=== PATIENT | female | born 1965 | race Caucasian/White ===

== ENCOUNTER 2020-04-28 16:39 | Outpatient (REF) | payer MEDICAID, SELFPAY ==
--- NOTE | 2020-04-28 | MM_ITS ---
EXAMINATION: MM SCREENING DIGITAL BREAST TOMOSYNTHESIS, BILATERAL CLINICAL INFORMATION: Screening. Asymptomatic. Benign left stereotactic biopsy 11/15/2018 (breast tissue with columnar cell change and microcalcifications). The lifetime risk of breast cancer based on the Tyrer-Cuzick Model is 9%. COMPARISON: Mammography: 05/21/2019, 11/28/2018, 11/23/2018, 11/15/2018, 11/09/2017 TECHNIQUE: Digital breast tomosynthesis is performed in both the craniocaudal and mediolateral oblique views along with computer-aided detection (CAD). Synthesized 2D images are generated from the tomosynthesis. Additional exaggerated right CC view is provided. FINDINGS: The breasts are heterogeneously dense, which may obscure small masses (ACR BI-RADS breast composition Category c). There is no developing density or interval mass or architectural abnormality. Low right axillary tail node is again seen. There are scattered bilateral round calcifications. Biopsy clip marker posterior medial left breast again noted with no recurrent calcifications. No significant changes. MM/MM tomosynthesis screening BI IMPRESSION: No significant changes from prior study. ASSESSMENT: BI-RADS 2: Benign RECOMMENDATION: Routine annual mammography screening. This patient's information was entered into a reminder system with a target due date for their next mammogram.
== END 2020-04-28 16:40 | disposition home or self-care (01) ==
LOC: HO.MAMMO 16:39
PROVIDERS: PCP Internal Medicine; Visit Provider Internal Medicine
DX: Z12.31 Encounter for screening mammogram for malignant neoplasm of breast (principal)
CPT/HCPCS: 77063; 77067

== ENCOUNTER → 2020-05-05 15:06 | Outpatient (BNVA) | payer MEDICAID, SELFPAY | PROVIDERS: PCP Internal Medicine; Visit Provider Advanced Practice Midwife | DX: N95.1 Menopausal and female climacteric states (principal); N92.6 Irregular menstruation, unspecified | CPT/HCPCS: 99212 ==

== ENCOUNTER 2020-06-22 16:40 | Outpatient (REF) | payer MEDICAID, SELFPAY | END 2020-06-22 16:41 | disposition home or self-care (01) | LOC: HO.LAB 16:40 | PROVIDERS: Visit Provider Internal Medicine | DX: Z20.822 Contact with and (suspected) exposure to COVID-19 (principal) | CPT/HCPCS: 36415; C9803; U0003 ==

== ENCOUNTER → 2020-07-09 15:22 | Outpatient (BNVA) | payer MEDICAID, SELFPAY | PROVIDERS: PCP Internal Medicine; Visit Provider Surgery | DX: Z12.11 Encounter for screening for malignant neoplasm of colon (principal) | CPT/HCPCS: 99202 ==

== ENCOUNTER 2020-07-29 06:34 | Day surgery (SDC) | payer MEDICAID, SELFPAY ==
[2020-07-22 14:15] VITALS: BMI 24.1
--- NOTE | 2020-07-28 10:07 | HO.ANESPROP2 ---
Documented by User: Alisha Thomason 07/28/20 10:08 HPI - Anesthesia Eval Consult details Narrative: 55yo F for Colonoscopy PMFSH Active Problems Active Problems: All Active Problems (Updated 07/22/20 @ 14:13 by Iraida Silva) Perimenopausal (Acute) Irregular menses (Acute) Colon cancer screening (Acute) Past Medical History Medical History Colon cancer screening Low back pain Family History Family History Father Prostate cancer Mother Depression Maternal Aunt History of gastric cancer Paternal Grandmother Uterine cancer Surgical History Surgical History History of colonoscopy (07/06/15) History of left breast biopsy (11/28/18) Hx of tubal ligation Social History Social History Alcohol intake: never Smoking Status: Never smoker Use of substances other than those prescribed or required for medical reasons: No Have you been hit, kicked, punched, or otherwise hurt by someone within the past year? If so, by whom?: No Advance Directives: No Advance Directives Information Provided: No Advance Directives on File: No Gender identity: female Meds Allergies Allergy/AdvReac Type Severity Reaction Status Date / Time No Known Allergies Allergy Verified 07/22/20 14:13 Home Medications Medication Instructions Recorded Confirmed Last Taken Type acetaminophen 650 mg PO Q6H PRN 07/22/20 07/22/20 Unknown History Exam Exam Date and Time: July 28, 2020 1007 Height,Weight and Vital Signs: Height 5 ft 5 in Weight 65.771 kg Assessment and Plan Assessment Anesthesia Assessment: Chart Reviewed Documented by User: Emma Ruiz 07/29/20 07:17 PMFSH Past Medical History Medical History Colon cancer screening Low back pain Family History Family History Father Prostate cancer Mother Depression Maternal Aunt History of gastric cancer Paternal Grandmother Uterine cancer Family history of problems with anesthesia: No Surgical History Surgical History History of colonoscopy (07/06/15) History of left breast biopsy (11/28/18) Hx of tubal ligation History of Problems with Anesthesia: No Social History Social History Alcohol intake: never Smoking Status: Never smoker Use of substances other than those prescribed or required for medical reasons: No Have you been hit, kicked, punched, or otherwise hurt by someone within the past year? If so, by whom?: No Advance Directives: No Advance Directives Information Provided: No Advance Directives on File: No Gender identity: female Meds Allergies Allergy/AdvReac Type Severity Reaction Status Date / Time No Known Allergies Allergy Verified 07/22/20 14:13 Home Medications Medication Instructions Recorded Confirmed Last Taken Type acetaminophen 650 mg PO Q6H PRN 07/22/20 07/22/20 Unknown History Exam Height,Weight and Vital Signs: Vital Signs Temp Pulse Resp BP Pulse Ox 07/29/20 06:44 97.5 F 88 16 140/94 H 98 Airway Mallampati Class: I TM Dist: >3cm Neck ROM: Full Heart: RRR Lungs: CTAB Assessment and Plan Assessment Anesthesia Assessment: Anesthesia Plan Discussed and Chart Reviewed Final Anesthetic Review NPO: Yes ASA Class: II Final Preanesthetic Review: No Changes in Pt Med Stat, Meds/Allgs Chart Reviewed, Consent Obtained/Reviewed and Anes Risks/Benef Reviewed Patient Risk: Low Procedure Risk: Low Assessment/Block/Sedation in SS: Assess/Block/Sedation-SS Anesthetic Plan Anesthetic Plan: MAC: Disposition: Standard PACU
[2020-07-29 06:44] VITALS: BP 140/94; PULSE 88; RESP 16; TEMP 36.4; O2SAT 98
[2020-07-29] MEDS: Lactated Ringers 1,000 ML 100 ML IVCONT (07:07)
--- NOTE | 2020-07-29 07:24 | PC.NURSE ---
PATIENT BENGALI SPEAKING BUT DOES SPEAK GOOD IRISH AND UNDERSTANDS QUESTIONS. EXIT BOOTH AGENT USED TO BE SURE.
--- NOTE | 2020-07-29 07:28 | MHC.SHP ---
Pre-Procedural Eval Section B Chief Complaint: Screening Allergies: Allergies Allergy/AdvReac Type Severity Reaction Status Date / Time No Known Allergies Allergy Verified 07/22/20 14:13 Plan I have reviewed the history and physical and performed a pertinent physical examination on my patient. No changes have occurred unless specified.
--- NOTE | 2020-07-29 08:25 | W.PM.OPN ---
Operative Note Operative Note Date of Service: 07/29/20 Narrative: PREOP DIAGNOSIS: COLON CANCER SCREENING POSTOP DIAGNOSIS: 1. INTERNAL AND EXTERNAL HEMORRHOIDS 2. SUBOPTIMAL BOWEL PREP PROCEDURE DONE: COLONOSCOPY SURGEON: ARMEN CARDONA MD The patient is a 55-year-old female who had previously undergone screening colonoscopy 4 years ago. I was unable to intubate the cecum at that time. I therefore recommended for her to undergo a repeat colonoscopy in a shorter interval. She understood the technique of the procedure. She was aware of the risks, benefits, and alternatives. She was brought to the endoscopy suite and placed in left lateral decubitus position under monitored anesthesia care. A full digital rectal was done. She had bulky internal and external hemorrhoids. The tip of the Olympus colonoscope was gently introduced through the anal orifice and advanced with insufflation all the way to the cecum. The cecum was intubated. The cecum was identified by visualization of the ileocecal valve as well as appendiceal orifice. The cecal mucosa was unremarkable. The scope was withdrawn with careful examination of the entire colonic mucosa being done with scope withdrawal. The patient did have a suboptimal bowel prep. There were multiple segments of the colon with some solid stools and we had to do a lot of irrigation and suctioning to clear up the colonic mucosa. Even then, it was unlikely that any large lesion may have been missed We continued to withdraw they colonoscope with careful examination of the colonic mucosa. The rectum was reached and there were no lesions seen. The anal canal was unremarkable except for internal and external hemorrhoids. The scope was then withdrawn completely with desufflation. The patient tolerated the procedure well. There were no complications noted. There was no blood loss. Withdrawal time was about 30 minutes. In view of her suboptimal bowel prep, I would recommend another colonoscopy in the next 5 years.
[2020-07-29 08:28] VITALS: BP 134/84; PULSE 73; RESP 16; TEMP 36.1; O2SAT 99
[2020-07-29 08:43] VITALS: BP 135/87; PULSE 72; RESP 16; TEMP 36.2; O2SAT 99
== END 2020-07-29 09:26 | disposition home or self-care (01) ==
PROVIDERS: Visit Provider Surgery
PROC: 0DJD8ZZ Inspection of Lower Intestinal Tract, Via Natural or Artificial Opening Endoscopic (ICD-10-PCS; CPT 45378; principal; 2020-07-29 07:30)
DX: Z12.11 Encounter for screening for malignant neoplasm of colon (principal); K64.8 Other hemorrhoids; K64.4 Residual hemorrhoidal skin tags; Z91.19 Patient's noncompliance with other medical treatment and regimen
CPT/HCPCS: 45378

== ENCOUNTER → 2020-08-12 15:01 | Outpatient (BNVA) | payer MEDICAID, SELFPAY | PROVIDERS: Visit Provider Surgery | DX: Z12.11 Encounter for screening for malignant neoplasm of colon (principal) | CPT/HCPCS: 99212 ==

== ENCOUNTER 2021-01-11 16:46 | Outpatient (REF) | payer MEDICAID, SELFPAY ==
--- NOTE | ~2021-01-11 | XR_ITS ---
EXAMINATION: XR HAND, LEFT CLINICAL INFORMATION: Pain left index and ring finger. COMPARISON: None TECHNIQUE: PA, lateral, and oblique views of the left hand. FINDINGS: There is mild loss of PIP and DIP joint space of all digits with periarticular spurring DIP joint 2nd and 3rd digit. No visible acute fracture or dislocation seen. There is no lytic process. The left wrist joint appears unremarkable. XR/XR hand LT min 3V IMPRESSION: Mild degenerative changes throughout PIP and DIP joints. There is mild soft tissue swelling PIP joint 2nd and 3rd digits with periarticular spurring.
== END 2021-01-11 16:47 | disposition home or self-care (01) ==
LOC: HO.XRAY 16:46
PROVIDERS: PCP Nurse Practitioner Family; Visit Provider Nurse Practitioner Family
DX: M79.645 Pain in left finger(s) (principal)
CPT/HCPCS: 73130

== ENCOUNTER 2021-01-21 13:37 | Outpatient (REF) | payer MEDICAID, SELFPAY ==
[2021-01-22 05:48] LABS: CT PCR NOT DETECTED (Not Detect.); NG PCR NOT DETECTED (Not Detect.)
== END 2021-01-21 13:38 | disposition home or self-care (01) ==
LOC: HO.LAB 13:37
PROVIDERS: PCP Nurse Practitioner Family; Visit Provider Advanced Practice Midwife
DX: Z01.411 Encounter for gynecological examination (general) (routine) with abnormal findings (principal); N92.1 Excessive and frequent menstruation with irregular cycle; R23.2 Flushing
CPT/HCPCS: 87491; 87591

== ENCOUNTER 2021-02-10 14:32 | Outpatient (REF) | payer MEDICAID, SELFPAY ==
--- NOTE | ~2021-02-10 | US_ITS ---
EXAMINATION: US PELVIC AND TRANSVAGINAL CLINICAL INFORMATION: Irregular menstruation. COMPARISON: 11/06/2012 TECHNIQUE: Transcutaneous and transvaginal pelvic ultrasound. Transvaginal scanning was performed after voiding to better evaluate the endometrium and adnexa. FINDINGS: The uterus measures 8.5 x 4.4 x 6.0 cm. The uterus is anteverted. Nabothian cysts are present. The uterine contour is smooth. The endometrium measures 1.6 cm. This is prominent but can be normal in secretory phase. There is a heterogeneous echotexture structure within the upper uterine myometrium posteriorly consistent with a fibroid measuring 1.7 x 1.6 x 1.7 cm in size. The myometrium has a generalized heterogeneous appearance which can be seen with adenomyosis. The right ovary measures approximately 2.2 x 1.5 x 1.6 cm. The calculated right ovarian volume is approximately 2.8 mL. No suspicious right adnexal findings. Normal vascular flow. The left ovary measures 4.1 x 2.4 x 2.3 cm. The calculated left ovarian volume is approximately 11.9 mL. There are 2 adjacent simple-appearing cysts, the largest measuring approximately 2.2 x 1.8 x 1.9 cm in size. No significant free pelvic fluid. US/US pelvic and transvaginal IMPRESSION: Heterogeneous echogenicity of the myometrium consistent with myomatosis. Thickened endometrium at 1.6 cm in diameter with normal echotexture. This may be related to secretory phase, and clinical correlation is suggested. 1.7 cm uterine fibroid which does not appear to be submucosal.
== END 2021-02-10 14:33 | disposition home or self-care (01) ==
LOC: HO.US 14:32
PROVIDERS: Visit Provider Advanced Practice Midwife
DX: N92.6 Irregular menstruation, unspecified (principal); N95.1 Menopausal and female climacteric states
CPT/HCPCS: 76830; 76856

== ENCOUNTER → 2021-02-23 15:11 | Outpatient (BNVA) | payer MEDICAID, SELFPAY | PROVIDERS: PCP Nurse Practitioner Family; Visit Provider Advanced Practice Midwife ==

== ENCOUNTER 2021-02-24 11:17 | Outpatient (REF) | payer MEDICAID, SELFPAY ==
[2021-02-24 13:11] LABS: Thyroid Stimulating Hormone 1.24 uIU/mL (0.32-4.0)
[2021-02-25 15:41] LABS: Follicle Stimulating Hormone 13.1 mIU/mL
== END 2021-02-24 11:18 | disposition home or self-care (01) ==
LOC: HO.LAB 11:17
PROVIDERS: Visit Provider Advanced Practice Midwife
DX: R23.2 Flushing (principal); N92.1 Excessive and frequent menstruation with irregular cycle
CPT/HCPCS: 36415; 83001; 84443

== ENCOUNTER 2021-05-03 14:17 | Outpatient (REF) | payer MEDICAID, SELFPAY | END 2021-05-03 14:18 | disposition home or self-care (01) | LOC: HO.MAMMO 14:17 | PROVIDERS: Visit Provider Internal Medicine | DX: Z13.89 Encounter for screening for other disorder (principal) ==

== ENCOUNTER 2021-05-13 14:13 | Outpatient (REF) | payer MEDICAID, SELFPAY ==
--- NOTE | ~2021-05-13 | MM_ITS ---
EXAMINATION: MM SCREENING DIGITAL BREAST TOMOSYNTHESIS, BILATERAL CLINICAL INFORMATION: Screening. Asymptomatic. Benign left stereotactic biopsy 11/15/2018 (breast tissue with columnar cell change and microcalcifications). The lifetime risk of breast cancer based on the Tyrer-Cuzick Model is 11%. COMPARISON: Mammography: 04/28/2020, 05/21/2019, 11/28/2018, 11/23/2018, 11/15/2018, 11/09/2017 TECHNIQUE: Digital breast tomosynthesis is performed in both the craniocaudal and mediolateral oblique views along with computer-aided detection (CAD). Synthesized 2D images are generated from the tomosynthesis. Additional exaggerated right CC and left MLO views are provided. FINDINGS: The breasts are heterogeneously dense, which may obscure small masses (ACR BI-RADS breast composition Category c). Parenchymal pattern is similar to prior studies. No developing density or significant mass or abnormal calcifications. There is a biopsy clip marker again noted posterior lower inner quadrant left breast. Low right axillary tail node is stable. No significant changes. MM/MM tomosynthesis screening BI IMPRESSION: No mammographic evidence of malignancy. ASSESSMENT: BI-RADS 2: Benign RECOMMENDATION: Routine annual mammography screening. This patient's information was entered into a reminder system with a target due date for their next mammogram.
--- NOTE | ~2021-05-13 | XR_ITS ---
EXAMINATION: XR LUMBOSACRAL SPINE WITH OBLIQUES CLINICAL INFORMATION: Low back pain and right-sided sciatica COMPARISON: Previous x-ray January 2016 TECHNIQUE: AP, both oblique, and lateral views of the lumbar spine. Lateral view of the lumbosacral junction. FINDINGS: There is a transitional vertebral body segment. There is curvature of the lower thoracic and upper lumbar spine to the right and lower lumbar spine to the left. Bone alignment is otherwise normal. No fracture or dislocation is seen. Disc spaces are normal. No pars defect is seen. There is mild facet arthritis of the lower lumbar spine. XR/XR lumbar spine 4V min IMPRESSION: Scoliosis and mild lower lumbar spine facet arthritis.
== END 2021-05-13 14:14 | disposition home or self-care (01) ==
LOC: HO.MAMMO 14:13
PROVIDERS: Absent Provider Emergency Medicine; PCP Internal Medicine; Visit Provider Internal Medicine
DX: Z12.31 Encounter for screening mammogram for malignant neoplasm of breast (principal); M54.41 Lumbago with sciatica, right side
CPT/HCPCS: 72110; 77063; 77067

== ENCOUNTER 2021-05-24 16:08 | Outpatient (REF) | payer MEDICAID, SELFPAY ==
--- NOTE | ~2021-05-24 | XR_ITS ---
EXAMINATION: XR HAND, LEFT CLINICAL INFORMATION: Pain in left finger(s). COMPARISON: Left hand radiographs 01/11/2021. TECHNIQUE: PA, lateral, and oblique views of the left hand. FINDINGS: The carpal alignment is normal. No evidence of joint space narrowing is seen in the MCP joints or 1st IP joint. Suggestion of mild narrowing of the 2nd through 5th PIP joints without erosive change and the 3rd through 5th DIP joints without erosive changes. Egetsapo-bw-ikymkd joint space narrowing at the 2nd DIP joint with osteophyte formation and subtle subchondral cyst formation and mild ulnar subluxation of the distal phalanx. No acute fracture or dislocation is seen. XR/XR hand LT min 3V IMPRESSION: Normal alignment without acute osseous abnormality. Mild joint space narrowing is seen in the PIP and DIP joints with more advanced arthritis in the 2nd digit DIP joint as above.
== END 2021-05-24 16:09 | disposition home or self-care (01) ==
LOC: HO.XRAY 16:08
PROVIDERS: Visit Provider Registered Nurse
DX: M79.645 Pain in left finger(s) (principal)
CPT/HCPCS: 73130

== ENCOUNTER → 2021-09-22 13:52 | Outpatient (BNVA) | payer MEDICAID, SELFPAY | PROVIDERS: PCP Internal Medicine; Referring Provider Internal Medicine; Visit Provider Physician Assistant | DX: Z86.010 Personal history of colon polyps (principal) | CPT/HCPCS: 99202 ==